=== PATIENT | male | born 1975 | race Caucasian/White ===

== ENCOUNTER 2017-05-27 10:29 | Outpatient (CLI) | payer OTHER ==
--- NOTE | 2017-05-27 11:09 | Diagnostic Imaging Report ---
[facility] [address] [facility].[address] [id number] Report Submission Date: May 27, 2017 11:04:52 AM CDT Patient Study Name: CAROLYNE LAMB Date: May 27, 2017 10:35:10 AM CDT Modality Type: CR Gender: M Description: LOWER EXTREMITY : 73 Institution: [facility] Physician: NANCY ABREU - [place] Examination: Plain film tibia/fibula History: Trauma Comparison exams: None available Findings: 2 views of the tibia fibula demonstrates normal cortical margins. No evidence for fracture line. No soft tissue abnormality. Impression: No osseous abnormality. Electronically signed on May 27, 2017 11:04:52 AM CDT by: Jg HOROWITZ
== END 2017-05-27 14:07 ==
LOC: RAD 10:29
PROVIDERS: ATTEND Family Medicine
DX: R22.41 Localized swelling, mass and lump, right lower limb (principal)
CPT/HCPCS: 73590

== ENCOUNTER 2017-06-09 16:08 | Outpatient (CLI) | payer OTHER ==
--- NOTE | 2017-06-09 17:25 | Diagnostic Imaging Report ---
NANCY ABREU~ [facility] [address] [facility].[address] [address] ~ ~ ~ ~ Report Submission Date: Jun 09, 2017 4:43:33 PM CDT Patient ~ Study Name: CAROLYNE LAMB ~ Date: Jun 09, 2017 4:15:58 PM CDT ~ Modality Type: CR Gender: M ~ Description: CHEST : 73 ~ Institution: [facility] Physician: NANCY ABREU ~ ~ ~ ~ Examination: PA and lateral chest. History: Evaluate lung marie. Comparison exams: None provided. Findings: PA lateral chest demonstrate a normal cardiac and mediastinal silhouette. No focal infiltrate.~ No effusion.~ No blunting of the costophrenic margins.~ Osseous structures are appropriate for age. Impression: No acute pulmonary process. ~ Electronically signed on Jun 09, 2017 4:43:33 PM CDT by: Jg HOROWITZ
== END 2017-06-09 16:10 ==
LOC: RT 16:08
PROVIDERS: ATTEND Family Medicine
DX: R07.9 Chest pain, unspecified (principal)
CPT/HCPCS: 71020